=== PATIENT | female | born 1975 | race Hispanic/Latino ===

== ENCOUNTER 2017-06-19 10:17 | Outpatient (CLI) | payer OTHER ==
--- NOTE | 2017-06-19 12:12 | ULT ---
GALLBLADDER ULTRASOUND: HISTORY: Right upper quadrant pain x 1 week. FINDINGS: The gallbladder shows no evidence of gallstones. There is no evidence of gallbladder wall thickenin g or pericholecystic edema. The common bile duct is normal caliber measured at 2-3 mm. Visualized aorta, IVC, liver, and right kidney appear unremarkable. The pancreas is mostly obscured . IMPRESSION: Unremarkable gallbladder ultrasound. The technologist does describe pain over the gallbladder durin g the exam. POS: [facility]
== END 2017-06-19 10:18 | disposition home or self-care (01) ==
LOC: MADULT 10:17
PROVIDERS: ATTEND Family Medicine
DX: R10.10 Upper abdominal pain, unspecified (principal)
CPT/HCPCS: 76705

== ENCOUNTER 2018-09-23 14:14 | Emergency (ER) | payer MEDICAID, SELFPAY ==
[2018-09-23] MEDS ORDERED: Sodium Chloride 0.9% 1,000 ML BAG ONE (14:25)
[2018-09-23] MEDS ORDERED: Famotidine In NaCl 20 mg/50 ml Premix Bag ONE (14:29)
[2018-09-23] MEDS ORDERED: Morphine 4 MG/ML VIAL ONE ×2 (14:29→16:55)
[2018-09-23] MEDS ORDERED: Ondansetron PF 4 MG/2 ML Vial ONE (14:29)
[2018-09-23 14:45] LABS: #Lymphocytes 0.9 thou/uL (1.20-3.40); #Monocytes 0.3 thou/uL (0.11-0.59); #Neutrophils 10.8 thou/uL (1.40-6.50); %Basophils 0.3 % (0.0-1.0); %Eosinophils 0.1 % (0.0-10.0); %Lymphocytes 7.1 % (21.0-51.0); %Monocytes 2.4 % (0.0-10.0); %Neutrophils 90.2 % (42.0-75.0); Mean Corpuscular HGB CONC 35.3 g/dL (32.0-36.0); Mean Corpuscular Hemoglobin 31.4 pg (27.0-31.0); Mean Corpuscular Volume 89.1 fL (78.0-98.0); Mean Platelet Volume 7.3 fL (7.4-10.4); Platelet Count 284 thou/uL (130-400); Red Blood Cell (RBC) Count 5.09 mill/uL (4.20-5.40); White Blood Cell (WBC) Count 11.9 thou/uL (4.8-10.8)
[2018-09-23 14:54] LABS: BHCG - Serum Negative (NEGATIVE); Pregs Control Background? CLEAR/WHITE (CLR/WHITE); Pregs Control Bar Appear? YES (CONTROL BAR)
--- NOTE | 2018-09-23 14:57 | CT ---
CT ABDOMEN NONCONTRAST CT PELVIS NONCONTRAST: (urolithiasis protocol) DATE: 09/23/18 TIME: 1439 HOURS HISTORY: 43-year-old female with acute left lower quadrant abdominal pain. COMPARISON: None. TECHNIQUE: IV injection of iodinated contrast media: none Oral contrast media: none FINDINGS: Other than for urolithiasis, the lack of IV and oral contrast limits the evaluation. There is a 0.9 x 0.4 x 0.6 cm calculus lodged in the left proximal ureter at the L3-4 level, causing mild left parapelvic edema around the left renal pelvis and renal sinus. There are a few small calcul i in the left renal collecting system, including a punctate 0.2 cm calculus in a mid pole calyx, and at least two or three small calculi in lower pole calices. One of them appears to be 0.8 x 0.2 cm. It is uncertain whether this is a single thin branching calculus or a cluster of several tiny calculi o ccupying a single calyx. There is a punctate 0.1 or 0.2 cm calculus at contralateral right renal lowe r pole. There is no calculus within the urinary bladder, which has thin, normal garcia. Minimal amount of free fluid in the cul-de-sac. No colonic diverticulitis. No small bowel dilation. Normal appendix . Within the limitations of noncontrast scan, no obvious pathology identified involving abdominal aor ta, liver, adrenals, pancreas, or spleen. No pleural effusion or consolidation at lung bases. IMPRESSION: 1. Left obstructive uropathy due to a 9 mm calculus lodged in the proximal left ureter, causing mild left hydronephrosis. 2. Mild bilateral nephrolithiasis with a few small bilateral renal calculi. JN R POS: [facility]
[2018-09-23 15:00] LABS: ALT (SGPT) 26 U/L (8-55); AST (SGOT) 37 U/L (5-34); Albumin 4.8 g/dL (3.5-5.0); Alkaline Phosphatase 80 U/L (40-150); Anion Gap 15 mmol/L (10-20); BUN (Urea Nitrogen) 9 mg/dL (7.0-18.7); Bilirubin, Total 0.7 mg/dL (0.2-1.2); Calc. Creatinine Clearance 0 mL/min (70-130); Calcium 9.3 mg/dL (7.8-10.44); Carbon Dioxide 22 mmol/L (22-29); Chloride 106 mmol/L (98-107); Estimated GFR-MDRD Greater than 90; Globulin 3.3 g/dL (2.4-3.5); Glucose 121 mg/dL (70-105); Lipase 40 U/L (8-78); Potassium 3.2 mmol/L (3.5-5.1); Protein, Total 8.1 g/dL (6.0-8.3); Sodium 140 mmol/L (136-145)
[2018-09-23] MEDS ORDERED: Prochlorperazine 10 MG/2 ML VIAL ONE (15:07)
[2018-09-23 15:09] LABS: Bilirubin Negative (Negative); Blood, Urine Large (Negative); Clarity Slightly Cloudy (Clear); Glucose, Urine (Dipstick) Negative (Negative); Leukocyte Negative (Negative); Nitrite Positive (Negative); Protein, Urine (Dipstick) 30 mg/dL (Neg-Trace); Urobilinogen 0.2 mg/dL (0.2-1.0); pH, Urine 7.5 (5.0-9.0)
[2018-09-23 15:13] LABS: Bacteria/HPF 4+ HPF (None Seen); Squamous Epithelial 0-3 HPF (0-3); WBC/HPF 0-3 HPF (0-3)
[2018-09-23] MEDS ORDERED: cefTRIAXone\\ROCEPHIN 1 GM VIAL ONE (15:38)
[2018-09-23] MEDS ORDERED: Acetaminophen 500 MG TAB ONE (16:55)
[2018-09-23] MEDS ORDERED: Sodium Chloride 0.9% 2,000 ML ONE (16:55)
== END 2018-09-23 17:32 | disposition short-term general hospital (02) ==
LOC: MADERS 14:14
DX: N13.2 Hydronephrosis with renal and ureteral calculous obstruction (principal)
CPT/HCPCS: 51701; 74176; 80053; 81003; 81015; 83605; 83690; 84703; 85025; 87077; 87086; 87186; 96361; 96365; 96375; 96376; A4353; J0696; J0780; J1956; J2270; J2405; J7050

== ENCOUNTER 2023-08-30 14:30 | Emergency (ER) | payer MEDICAID, SELFPAY ==
[~2023-08-30 14:30] MED LIST: Iopamidol 370 76% 100 ML VIAL ONE
[2023-08-30] MEDS ORDERED: Ondansetron PF 4 MG/2 ML Vial ONE (14:58)
[2023-08-30] MEDS ORDERED: Meclizine HCl 25 MG TAB ONE (14:58)
[2023-08-30] MEDS ORDERED: Lactated Ringer's 1,000 ML ONE (14:59)
[2023-08-30 15:11] LABS: #Basophils 0.1 thou/uL (0.0-0.2); #Eosinphils 0.1 thou/uL (0.0-0.7); #Lymphocytes 2.7 thou/uL (1.20-3.40); #Monocytes 0.4 thou/uL (0.11-0.59); #Neutrophils 3.5 thou/uL (1.40-6.50); %Basophils 0.9 % (0.0-1.0); %Eosinophils 1.9 % (0.0-10.0); %Lymphocytes 39.5 % (21.0-51.0); %Monocytes 5.6 % (0.0-10.0); %Neutrophils 52.1 % (42.0-75.0); Hematocrit 46.4 % (36.0-47.0); Hemoglobin 15.6 g/dL (12.0-16.0); Mean Corpuscular HGB CONC 33.5 g/dL (32.0-36.0); Mean Corpuscular Hemoglobin 30.8 pg (27.0-31.0); Mean Corpuscular Volume 91.7 fl (78.0-98.0); Mean Platelet Volume 8.4 fL (7.4-10.4); Platelet Count 289 10x3/uL (130-400); RBC Distribution Width 11.7 % (11.5-14.5); Red Blood Cell (RBC) Count 5.06 mill/uL (4.20-5.40); White Blood Cell (WBC) Count 6.7 10x3/uL (4.8-10.8)
[2023-08-30 15:20] LABS: PTT 29.9 sec (22.9-36.1)
[2023-08-30 15:23] LABS: ALT (SGPT) 28 U/L (8-55); AST (SGOT) 41 U/L (5-34); Alkaline Phosphatase 76 U/L (40-110); Anion Gap 17 mmol/L (10-20); BUN (Urea Nitrogen) 10 mg/dL (7.0-18.7); Bilirubin, Total 0.8 mg/dL (0.2-1.2); Calc. Creatinine Clearance 0 mL/min (70-130); Calcium 9.6 mg/dL (7.8-10.44); Carbon Dioxide 22 mmol/L (22-29); Chloride 105 mmol/L (98-107); Estimated GFR 104; Globulin 3.6 g/dL (2.4-3.5); Glucose 116 mg/dL (70-105); Protein, Total 8.6 g/dL (6.0-8.3); Sodium 141 mmol/L (136-145)
[2023-08-30 15:26] LABS: Troponin I Less than 0.010 ng/mL (< 0.028)
[2023-08-30] MEDS ORDERED: Potassium Chloride 20 MEQ TAB ONE (15:44)
[2023-08-30] MEDS ORDERED: Acetaminophen 500 MG TAB ONE ×2 (15:45→15:48)
[2023-08-30 15:50] LABS: Bilirubin Negative (Negative); Blood, Urine Negative (Negative); Glucose, Urine (Dipstick) Negative (Negative); Ketone, Urine Negative (Negative); Leukocyte Negative (Negative); Nitrite Negative (Negative); Protein, Urine (Dipstick) Negative (Neg-Trace); Specific Gravity, Urine 1.015 (1.005-1.030); Urobilinogen 0.2 mg/dL (Less than 2)
[2023-08-30 15:51] LABS: Clarity Hazy (Clear)
[2023-08-30 15:52] LABS: Bacteria/HPF 1+ HPF (None Seen); CAUTI Indications for Culture Alt mental st,lethar; RBC/HPF 0-3 HPF (0-3); Squamous Epithelial 0-3 HPF (0-3); WBC/HPF 0-3 HPF (0-3)
[2023-08-30 15:53] LABS: Pregnancy Test - Urine (BHCG) Negative (Negative); Pregu Control Background? CLEAR/WHITE (CLR/WHITE); Pregu Control Bar Appear? YES (CONTROL BAR); Specific Gravity 1.015 (1.002-1.036); Urine Culture Reflex No No
== END 2023-08-30 16:14 | disposition home or self-care (01) ==
LOC: MADERS 14:30
DX: R42 Dizziness and giddiness (principal); E87.6 Hypokalemia; R29.700 NIHSS score 0; I10 Essential (primary) hypertension; Y93.89 Activity, other specified; Y92.219 Unspecified school as the place of occurrence of the external cause
CPT/HCPCS: 36416; 70450; 71045; 71275; 80053; 81001; 81025; 83735; 83880; 84443; 84484; 85025; 85610; 85730; 93005; 94760; 96361; 96374; J2405; J7120; Q9967

== ENCOUNTER 2023-08-31 11:34 | Emergency (ER) | payer SELFPAY ==
[2023-08-31] MEDS ORDERED: Sodium Chloride 0.9% 1,000 ML ONE (12:29)
[2023-08-31] MEDS ORDERED: Promethazine HCl 25 MG/ML VIAL ONE (12:29)
== END 2023-08-31 15:00 | disposition home or self-care (01) ==
LOC: MADERS 11:34
DX: H81.12 Benign paroxysmal vertigo, left ear (principal); R29.700 NIHSS score 0; I10 Essential (primary) hypertension; Z79.899 Other long term (current) drug therapy
CPT/HCPCS: 96361; 96374; J2550; J7050